=== PATIENT | female | born 1990 | race Caucasian/White ===

== ENCOUNTER 2023-12-30 13:25 | Outpatient (CLI) | payer OTHER | END 2023-12-30 13:29 | disposition home or self-care (01) | LOC: PRENATAL 13:25 | PROVIDERS: ATTEND Obstetrics & Gynecology Maternal & Fetal Medicine | DX: O44.00 Complete placenta previa NOS or without hemorrhage, unspecified trimester (principal); O99.280 Endocrine, nutritional and metabolic diseases complicating pregnancy, unspecified trimester; Z3A.22 22 weeks gestation of pregnancy ==

== ENCOUNTER 2024-02-19 13:17 | Outpatient (CLI) | payer OTHER | END 2024-02-19 13:18 | disposition home or self-care (01) | LOC: PRENATAL 13:17 | PROVIDERS: ATTEND Obstetrics & Gynecology Maternal & Fetal Medicine | DX: O26.849 Uterine size-date discrepancy, unspecified trimester (principal); O44.00 Complete placenta previa NOS or without hemorrhage, unspecified trimester; O99.280 Endocrine, nutritional and metabolic diseases complicating pregnancy, unspecified trimester; Z3A.29 29 weeks gestation of pregnancy ==

== ENCOUNTER 2024-04-01 13:23 | Outpatient (CLI) | payer OTHER | END 2024-04-01 15:57 | disposition home or self-care (01) | LOC: PRENATAL 13:23 | PROVIDERS: ATTEND Obstetrics & Gynecology Maternal & Fetal Medicine | DX: O26.849 Uterine size-date discrepancy, unspecified trimester (principal); O36.8199 Decreased fetal movements, unspecified trimester, other fetus; O99.280 Endocrine, nutritional and metabolic diseases complicating pregnancy, unspecified trimester; O36.60X0 Maternal care for excessive fetal growth, unspecified trimester, not applicable or unspecified; Z3A.36 36 weeks gestation of pregnancy ==

== ENCOUNTER 2024-04-14 15:17 | Outpatient (CLI) | payer OTHER | END 2024-04-14 16:45 | disposition home or self-care (01) | LOC: NST 15:17 | PROVIDERS: ATTEND General Practice | DX: Z3A.35 35 weeks gestation of pregnancy (principal) ==

== ENCOUNTER 2024-04-27 14:45 | Inpatient (IN) | payer OTHER ==
[~2024-04-27] VITALS: Ht 175.3 cm; Wt 78.9 kg
[2024-05-11] VITALS (10 sets, daily range): BP systolic 103–125; BP diastolic 54–74
[2024-05-11] MEDS ORDERED: PRENATAL TABLE1 EAC1 PO (03:07)
[2024-05-11] MEDS ORDERED: SYNTHROID50 MCG PO (03:08)
[2024-05-11] MEDS ORDERED: RINGERS SOLUTION,LACTATED 1,000 ML IV SCH (03:15)
[2024-05-11 03:28] LABS: URINE APPEARANCE Clear; URINE BILIRRUBIN Negative (NEGATIVE); URINE BLOOD Negative; URINE COLOR Yellow; URINE KETONE Negative (NEGATIVE); URINE LEUKOCYTE Negative; URINE NITRATE Negative; URINE PROTEIN Negative (NEGATIVE); URINE UROBILINOGEN 0.2 E.U./dl
[2024-05-11 03:32] LABS: URINE BACTERIA 189.4 uL (0.0-1933); URINE EPITHELIAL CELLS 1.8 uL (0.0-38.8); URINE WBC 4.5 uL (0.0-23.2)
[2024-05-11 03:33] LABS: HEMATOCRIT 36.6 % (36.0-45.00); HEMOGLOBIN 13.1 g/dL (12.0-15.00); MEAN CELL VOLUME 88.4 fL (80.00-100.00); MEAN CORPUSCULAR HEMOGLOBIN 31.7 pg (27.00-32.0); MEAN CORPUSCULAR HGB CONC 35.8 g/dl (32.0-36.0); PLATELET COUNT 226 K/uL (150-450); RED BLOOD COUNT 4.14 M/uL (4.00-6.00); RED CELL DISTRIBUTION WIDTH 13.5 % (11.5-14.5)
[2024-05-11 03:48] LABS: INR < 0.93; PARTIAL THROMBOPLASTIN TIME 25.5 SECONDS (22.0-34.0); PROTHROMBIN TIME 9.9 SECONDS (9.0-11.5)
[2024-05-11 03:56] LABS: BILIRUBIN TOTAL 0.44 mg/dL (0.3-1.2); CALCIUM 9.3 mg/dL (8.5-10.1); GFR 165.71; GLOBULINA 3.8 G/DL (2.4-3.5); POTASSIUM 3.95 mEq/L (3.5-5.1); TOTAL PROTEIN 6.8 gm/dL (6.4-8.2)
[2024-05-11 04:18] LABS: CREATININE SERUM 0.44 mg/dL (0.55-1.02)
[2024-05-11 04:24] LABS: URINE GLUCOSE 100 MG/DL (NEGATIVE); URINE RBC 0.5 uL (0.0-20.8)
[2024-05-11] MEDS ORDERED: OXYTOCIN 500 ML IV SCH (07:30)
[2024-05-11] MEDS ORDERED: MORPHINE SULFATE 4 MG/ML CARTRIDGE IV ONE (14:30)
[2024-05-11] MEDS ORDERED: LIDOCAINE HCL 1% 10ML VIAL PERCUT ONE (20:45)
[2024-05-11] MEDS ORDERED: OXYTOCIN 1,000 ML IV SCH (20:45)
[2024-05-11] MEDS ORDERED: ERYTHROMYCIN BASE OPHT 1GM EACH TUBE OP ONE (20:45)
[2024-05-11] MEDS ORDERED: CHLORHEXIDINE GLUCONATE 120 ML BOTTLE TOP SCH (20:45)
[2024-05-11] MEDS ORDERED: OXYTOCIN 20 UNITS/1000ML RL PIGGYBAG IV SCH (20:45)
[2024-05-11] MEDS ORDERED: CHLORHEXIDINE GLUCONATE 120 ML BOTTLE TOP ONE (20:45)
[2024-05-11] MEDS ORDERED: DOCUSATE SODIUM 100MG CAP PO SCH (20:46)
[2024-05-11] MEDS ORDERED: IBUprofen 400 MG TABLET PO PRN (21:00)
[2024-05-11] MEDS ORDERED: CEFAZOLIN SODIUM 1,000 MG VIAL IV ONE (21:00)
[2024-05-12 01:19] VITALS: BP 109/68
[2024-05-12] MEDS ORDERED: IBUprofen 800 MG TABLET PO PRN (06:30)
[2024-05-12 06:52] LABS: HEMATOCRIT 30.5 % (36.0-45.00); HEMOGLOBIN 10.5 g/dL (12.0-15.00); MEAN CELL VOLUME 89.5 fL (80.00-100.00); MEAN CORPUSCULAR HEMOGLOBIN 30.8 pg (27.00-32.0); MEAN CORPUSCULAR HGB CONC 34.5 g/dl (32.0-36.0); PLATELET COUNT 214 K/uL (150-450); RED BLOOD COUNT 3.41 M/uL (4.00-6.00); RED CELL DISTRIBUTION WIDTH 13.4 % (11.5-14.5)
[2024-05-12 08:00] VITALS: BP 106/66
[2024-05-12 16:01] VITALS: BP 105/72
[2024-05-12] MEDS ORDERED: BENZOCAINE/MENTHOL 90 ML BOTTLE TOP SCH (17:00)
[2024-05-13 01:17] VITALS: BP 101/65
[2024-05-13 05:32] VITALS: BP 109/64
[2024-05-13 06:54] LABS: HEMATOCRIT 25.9 % (36.0-45.00); HEMOGLOBIN 9.2 g/dL (12.0-15.00); MEAN CELL VOLUME 88.5 fL (80.00-100.00); MEAN CORPUSCULAR HEMOGLOBIN 31.4 pg (27.00-32.0); MEAN CORPUSCULAR HGB CONC 35.5 g/dl (32.0-36.0); PLATELET COUNT 187 K/uL (150-450); RED BLOOD COUNT 2.92 M/uL (4.00-6.00); RED CELL DISTRIBUTION WIDTH 13.7 % (11.5-14.5)
[2024-05-13 08:00] VITALS: BP 117/71
[2024-05-13 12:19] LABS: HEMATOCRIT 29.4 % (36.0-45.00); HEMOGLOBIN 10.3 g/dL (12.0-15.00); MEAN CELL VOLUME 89.2 fL (80.00-100.00); MEAN CORPUSCULAR HEMOGLOBIN 31.3 pg (27.00-32.0); MEAN CORPUSCULAR HGB CONC 35.1 g/dl (32.0-36.0); PLATELET COUNT 226 K/uL (150-450); RED BLOOD COUNT 3.29 M/uL (4.00-6.00); RED CELL DISTRIBUTION WIDTH 13.6 % (11.5-14.5)
[2024-05-13 16:09] VITALS: BP 113/68
== END 2024-05-13 17:57 | disposition home or self-care (01) | DRG 768 ==
LOC: LDR 05-06 14:45 → OB/GYN 05-11 20:32
PROVIDERS: Student in an Organized Health Care Education/Training Program; ADMIT Obstetrics & Gynecology; ATTEND Obstetrics & Gynecology
PROC: 10E0XZZ Delivery of Products of Conception, External Approach (ICD-10-PCS; principal; 2024-05-11)
PROC: 0DQR0ZZ Repair Anal Sphincter, Open Approach (ICD-10-PCS; 2024-05-11)
PROC: 4A1HXCZ Monitoring of Products of Conception, Cardiac Rate, External Approach (ICD-10-PCS; 2024-05-11)
DX: O70.21 Third degree perineal laceration during delivery, IIIa (principal); Z37.0 Single live birth; Z3A.39 39 weeks gestation of pregnancy

== ENCOUNTER 2024-05-10 10:11 | Outpatient (CLI) | payer OTHER ==
[2024-05-11] MEDS ORDERED: PRENATAL TABLE1 EAC1 PO (03:07)
[2024-05-11] MEDS ORDERED: SYNTHROID50 MCG PO (03:08)
== END 2024-05-10 10:12 | disposition home or self-care (01) ==
LOC: PRENATAL 10:11
PROVIDERS: ATTEND Obstetrics & Gynecology Maternal & Fetal Medicine
DX: O26.849 Uterine size-date discrepancy, unspecified trimester (principal); O36.8199 Decreased fetal movements, unspecified trimester, other fetus; O36.60X0 Maternal care for excessive fetal growth, unspecified trimester, not applicable or unspecified; Z3A.39 39 weeks gestation of pregnancy

== ENCOUNTER 2024-05-17 10:00 | Outpatient (CLI) | payer OTHER ==
[~2024-05-17] VITALS: Ht 175.3 cm; Wt 72.6 kg
[2024-05-17 09:40] VITALS: BP 116/75
[~2024-05-17 10:00] MED LIST: PRENATAL TABLE1 EAC1 PO; SYNTHROID50 MCG PO
[2024-05-17] MEDS ORDERED: DIPHENHYDRAMINE HCL 50 MG/ML VIAL 1ML IV ONE (10:15)
[2024-05-17] MEDS ORDERED: RINGERS SOLUTION,LACTATED 1,000 ML IV SCH (10:15)
[2024-05-17 10:42] LABS: PH,URINE 5.5 (5.0-8.0); URINE APPEARANCE Clear; URINE BILIRRUBIN Negative (NEGATIVE); URINE BLOOD Large; URINE COLOR Dark Yellow; URINE GLUCOSE Negative (NEGATIVE); URINE KETONE Negative (NEGATIVE); URINE LEUKOCYTE Moderate; URINE NITRATE Negative; URINE PROTEIN 30 (NEGATIVE)
[2024-05-17 10:44] LABS: URINE BACTERIA 291.2 uL (0.0-1933); URINE EPITHELIAL CELLS 32.2 uL (0.0-38.8); URINE RBC 1852.2 uL (0.0-20.8); URINE WBC 165.1 uL (0.0-23.2)
[2024-05-17 10:47] LABS: HEMATOCRIT 36.3 % (36.0-45.00); HEMOGLOBIN 12.2 g/dL (12.0-15.00); MEAN CELL VOLUME 90.2 fL (80.00-100.00); MEAN CORPUSCULAR HEMOGLOBIN 30.3 pg (27.00-32.0); MEAN CORPUSCULAR HGB CONC 33.6 g/dl (32.0-36.0); PLATELET COUNT 409 K/uL (150-450); RED BLOOD COUNT 4.02 M/uL (4.00-6.00); RED CELL DISTRIBUTION WIDTH 13.4 % (11.5-14.5)
[2024-05-17 11:00] VITALS: BP 105/66
[2024-05-17 11:12] LABS: ALBUMIN 3.1 gm/dL (3.4-5.0); BILIRUBIN TOTAL 0.59 mg/dL (0.3-1.2); CALCIUM 9.2 mg/dL (8.5-10.1); CREATININE SERUM 0.42 mg/dL (0.55-1.02); GFR 174.85; POTASSIUM 4.15 mEq/L (3.5-5.1); TOTAL PROTEIN 7.1 gm/dL (6.4-8.2)
[2024-05-17] MEDS ORDERED: METHYLPREDNISOLONE SOD SUCC 125 MG VIAL IV ONE (11:30)
[2024-05-17 14:02] VITALS: BP 105/66
== END 2024-05-17 14:47 | disposition home or self-care (01) ==
LOC: OBS/DEL 10:00
PROVIDERS: ATTEND General Practice
DX: O90.89 Other complications of the puerperium, not elsewhere classified (principal)

== ENCOUNTER 2025-01-18 20:25 | Emergency (ER) | payer OTHER ==
[~2025-01-18] VITALS: Ht 175.3 cm; Wt 68.0 kg
[2025-01-18] MEDS ORDERED: CEFTRIAXONE SODIUM 1,000 MG VIAL IM ONE (20:45)
[2025-01-18] MEDS ORDERED: KETOROLAC TROMETHAMINE 60 MG VIAL IM ONE ×2 (20:45→21:33)
[2025-01-18] MEDS ORDERED: CEFTRIAXONE SODIUM 1,000 MG VIAL ONE (21:32)
[2025-01-18 22:19] LABS: BASO % 0.4 % (0.1-1.2); EOS # 0.07 (0.04-0.54); EOS % 0.6 % (0.7-7.0); LYMPH # 1.90 (1.18-3.74); LYMPH % 17.3 % (19.3-53.1); MEAN PLATELET VOLUME 9.60 fl (9.4-12.4); MONO # 0.69 (0.24-0.82); MONO % 6.3 % (4.7-12.5); NEUT # 8.27 (1.56-6.13); NEUT % 75.2 % (34.0-71.1); RED CELL DISTRIBUTION WIDTH 12.5 % (11.6-14.4)
[2025-01-18 22:42] LABS: COVID-19 AG NEGATIVE (NEGATIVE)
[2025-01-18] MEDS ORDERED: PEPCID AC20 MG PO (22:49)
[2025-01-18] MEDS ORDERED: AZITHROMYCIN500 MG PO (22:49)
== END 2025-01-18 22:56 | disposition home or self-care (01) ==
LOC: ER 20:25
PROVIDERS: General Practice
DX: J02.9 Acute pharyngitis, unspecified (principal); K13.79 Other lesions of oral mucosa; Z20.822 Contact with and (suspected) exposure to COVID-19